=== PATIENT | female | born 1975 | race American Indian/Alaskan Native ===

== ENCOUNTER 2017-06-13 08:55 | Emergency (ER) | payer SELFPAY ==
[2017-06-13 09:32] VITALS: BP 130/91
== END 2017-06-13 10:29 | disposition left against medical advice (07) ==
LOC: ED 08:55
DX: Z04.1 Encounter for examination and observation following transport accident (principal); Z53.21 Procedure and treatment not carried out due to patient leaving prior to being seen by health care provider; V89.2XXA Person injured in unspecified motor-vehicle accident, traffic, initial encounter; Y93.89 Activity, other specified; Y99.8 Other external cause status; Y92.488 Other paved roadways as the place of occurrence of the external cause